=== PATIENT | male | born 1980 | race Caucasian/White ===

== ENCOUNTER 2016-08-07 15:42 | Emergency (ER) | payer MEDICARE | END 2016-08-07 19:08 | disposition home or self-care (01) | LOC: ER 15:42 | DX: M79.602 Pain in left arm (principal); R07.9 Chest pain, unspecified; R20.0 Anesthesia of skin; I10 Essential (primary) hypertension; F17.210 Nicotine dependence, cigarettes, uncomplicated; Z88.1 Allergy status to other antibiotic agents | CPT/HCPCS: 36415; Q9967 ==

== ENCOUNTER 2016-10-26 10:38 | Emergency (ER) | payer SELFPAY | END 2016-10-26 11:14 | disposition home or self-care (01) | LOC: ER 10:38 | DX: K04.7 Periapical abscess without sinus (principal); F17.200 Nicotine dependence, unspecified, uncomplicated; Z88.1 Allergy status to other antibiotic agents ==